=== PATIENT | male | born 1985 | race Caucasian/White ===

== ENCOUNTER 2020-01-10 18:05 | Emergency (ER) | payer BC ==
[~2020-01-10] VITALS: Ht 167.6 cm; Wt 105.2 kg
[2020-01-10 18:09] VITALS: Ht 167.6 cm; Wt 105.2 kg
[2020-01-10 18:26] VITALS: BP 129/75
== END 2020-01-10 18:26 | disposition home or self-care (01) ==
LOC: ED 18:05
DX: J30.9 Allergic rhinitis, unspecified (principal)